=== PATIENT | male | born 1960 | race Hispanic/Latino ===

== ENCOUNTER 2017-04-05 11:44 | Emergency (ER) | payer OTHER ==
[2017-04-05 12:16] VITALS: BP 160/97; RESP 14; TEMP 98.4; O2SAT 100
[2017-04-05] MEDS ORDERED: TDAP Vaccine 0.5 mL Syr IM ONE (12:22)
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
[2017-04-05 14:04] VITALS: PULSE 82
--- NOTE | 2017-04-05 15:25 | CT ---
PROCEDURE: CT HEAD WITHOUT CONTRAST. HISTORY: HEAD INJURY COMPARISON: None available. TECHNIQUE: Axial computed tomography images were obtained through the head/brain without intravenous contrast. Radiation dose: Total exam DLP = 850.11 mGy-cm. This CT exam was performed using one or more of the following dose reduction techniques: Automated exposure control, adjustment of the mA and/or kV according to patient size, and/or use of iterative reconstruction technique. FINDINGS: HEMORRHAGE: No acute parenchymal, subarachnoid or extra-axial hemorrhage. BRAIN: There may be some very minimal chronic periventricular white matter and possibly a few scattered ischemic changes. No obvious parenchymal nor extra-axial mass or collection seen on this noncontrast study. Ventricular and sulcal size are within range of normal for this patient's stated age. VENTRICLES: No obstructive hydrocephalus CALVARIUM: No acute calvarial fractures. PARANASAL SINUSES: Unremarkable as visualized. No significant inflammatory changes. MASTOID AIR CELLS: Unremarkable as visualized. No inflammatory changes. OTHER FINDINGS: None. IMPRESSION: No acute intracranial hemorrhage. Suspect minimal chronic periventricular at and possibly a few scattered subcortical white matter ischemic changes.
[2017-04-05] MEDS ORDERED: Oxycodone/Acetaminophen 5/325 mg Tab ONE (15:26)
[2017-04-05] MEDS ORDERED: Oxycodone/Acetaminophen 5/325 mg Tab PO STA (15:29)
--- NOTE | 2017-04-05 17:27 | RAD ---
PROCEDURE: Chest and left rib series dated 04/05/2017 HISTORY: Status post fall. Rule out rib fracture. COMPARISON: None available. TECHNIQUE: Frontal radiograph of the chest and multiple oblique radiographs of the left ribs were obtained. FINDINGS: LEFT RIBS: No definitive acute displaced left-sided rib fracture seen however if symptoms persist or occult fracture suspected clinically recommend the follow-up CT scan of the chest LUNGS: Suspect minor bibasilar atelectasis. There also appears to be mild biapical pleural thickening. PLEURA: No definitive pneumothorax or or pleural fluid. CARDIOVASCULAR: Normal sized heart. No pulmonary vascular congestion. OTHER FINDINGS: None. IMPRESSION: Suspect mild bibasilar atelectasis. Mild biapical pleural thickening. No evidence of pneumothorax. No definitive acute left sided rib fracture seen however if symptoms persist or occult fracture suspected clinically recommend followup CT scan chest. Note that this report was placed in PA review folder for followup.
--- NOTE | 2017-04-05 18:29 | RAD ---
PROCEDURE: Right Wrist Radiographs. HISTORY: wrist injury COMPARISON: None. FINDINGS: BONES: There is very slight irregularity of what is felt to represent the the triquetrum seen on lateral projection. While this could represent overlapping confluence of shadows the possibility of a triquetrum fracture not excluded. Questionable overlying mild dorsal soft tissue swelling Repeat radiographs 7-10 days could be performed as most fractures should become radiographically evident in this timeframe. Alternately, the CT scan of the wrist could be obtained. JOINTS: Normal. No dislocation. SOFT TISSUES: As above. No radiopaque foreign bodies. OTHER FINDINGS: None. IMPRESSION: There is very slight irregularity of what is felt to represent the the triquetrum seen on lateral projection. While this could represent overlapping confluence of shadows the possibility of a triquetrum fracture not excluded. Repeat radiographs 7-10 days could be performed as most fractures should become radiographically evident in this timeframe. Alternately, the CT scan of the wrist could be obtained. Note this report was placed in PA review folder for followup.
--- NOTE | 2017-04-07 17:43 | RAD ---
PROCEDURE: Bilateral Hand Radiographs. HISTORY: swelling thenar prominence COMPARISON: None available. FINDINGS: BONES: Comminuted fracture of the proximal aspect proximal left 5th phalanx with intra-articular extension. The remainder the visualized osseous structures appear intact. JOINTS: No dislocation. SOFT TISSUES: Left-sided soft tissue swelling. No evidence of radiopaque foreign body. OTHER FINDINGS: None. IMPRESSION: Intra-articular comminuted acute fracture involving the proximal aspect proximal 5th phalanx. Associated soft tissue swelling. Study has been marked for PA review.
== END 2017-04-05 15:41 | disposition home or self-care (01) ==
LOC: H.ER 11:44
DX: S09.90XA Unspecified injury of head, initial encounter (principal); S29.9XXA Unspecified injury of thorax, initial encounter; M25.531 Pain in right wrist; M79.643 Pain in unspecified hand; S62.615A Displaced fracture of proximal phalanx of left ring finger, initial encounter for closed fracture; W19.XXXA Unspecified fall, initial encounter; Y92.410 Unspecified street and highway as the place of occurrence of the external cause